=== PATIENT | male | born 1980 | race Caucasian/White ===

== ENCOUNTER 2017-12-30 14:18 | Emergency (ER) | payer OTHER ==
[2017-12-30 14:26] VITALS: BP 128/91
--- NOTE | 2017-12-30 14:27 | ER Report ---
History and Physical Time Seen By MD: 14:27 HPI/ROS CHIEF COMPLAINT: Back pain HISTORY OF PRESENT ILLNESS: This is a 37-year-old male who presents to the emergency department for chronic back pain over the last 2 years. Patient states that he works in the [employer] and has had increased back pain over the last several weeks, today however he states that the back pain seemed to radiate to his left flank. Denies dysuria. No previous urinary concerns. Patient has not taken any medications for the back pain. No fevers or chills. Denies nausea or vomiting. No abdominal pain. No radiation down the buttock or leg. Patient states he did have an MRI a couple of years ago and they didn't find anything. REVIEW OF SYSTEMS: Respiratory: No cough, no dyspnea. Cardiovascular: No chest pain, no palpitations. Gastrointestinal: No vomiting, no abdominal pain. Musculoskeletal: As above. Allergies: Coded Allergies: No Known Drug Allergies (Unverified , 12/30/17) Past Medical/Surgical History The patient has a past medical and surgical history of back pain. Reviewed Nurses Notes: Yes Constitutional Vital Sign - Last 24 Hours 12/30/17 14:26 Pulse 77 Resp 20 B/P (MAP) 128/91 Pulse Ox 96 O2 Delivery Room Air Physical Exam General Appearance: The patient is alert, has no immediate need for airway protection and no current signs of toxicity. Eyes: Pupils equal and round no injection. Respiratory: Chest is non tender, lungs are clear to auscultation. Cardiac: regular rate and rhythm. Gastrointestinal: Abdomen is soft and non tender, no masses, bowel sounds normal. No CVA tenderness. No abdominal pain or rebound tenderness. Musculoskeletal: Neck: Neck is supple and non tender. Lower thoracic and lumbar back negative for contusion, no crepitus, step-offs or obvious deformities. Extremities have full range of motion and are non tender. Skin: No rashes or lesions. DIFFERENTIAL DIAGNOSIS: After history and physical exam differential diagnosis was considered for back pain including but not limited to muscular pain, herniated disc, spine fracture, intra-abdominal causes and urinary tract infection. Medical Decision Making Data Points Laboratory Hematology Test 12/30/17 15:00 Urine Color Yellow Urine Clarity Clear Urine pH 6.0 pH (4.8-9.5) Urine Specific Norris 1.016 Urine Protein Negative mg/dL (NEGATIVE) Urine Glucose (UA) Negative mg/dL (NEGATIVE) Urine Ketones Negative mg/dL (NEGATIVE) Urine Blood Negative (NEGATIVE) Urine Nitrite Negative (NEGATIVE) Urine Bilirubin Negative (NEGATIVE) Urine Urobilinogen Negative mg/dL (0.2-1.9) Urine Leukocyte Esterase Negative (NEGATIVE) Urine RBC None /HPF (0-2/HPF) Urine WBC 1 /HPF (0-5/HPF) Urine Squamous Epithelial Cells None /LPF (</=FEW) Urine Bacteria Negative /HPF (NONE-FEW) Urine Mucus None /HPF (NONE-FEW) Chemistry Test 12/30/17 15:00 Urine Color Yellow Urine Clarity Clear Urine pH 6.0 pH (4.8-9.5) Urine Specific Norris 1.016 Urine Protein Negative mg/dL (NEGATIVE) Urine Glucose (UA) Negative mg/dL (NEGATIVE) Urine Ketones Negative mg/dL (NEGATIVE) Urine Blood Negative (NEGATIVE) Urine Nitrite Negative (NEGATIVE) Urine Bilirubin Negative (NEGATIVE) Urine Urobilinogen Negative mg/dL (0.2-1.9) Urine Leukocyte Esterase Negative (NEGATIVE) Urine RBC None /HPF (0-2/HPF) Urine WBC 1 /HPF (0-5/HPF) Urine Squamous Epithelial Cells None /LPF (</=FEW) Urine Bacteria Negative /HPF (NONE-FEW) Urine Mucus None /HPF (NONE-FEW) Urinalysis Test 12/30/17 15:00 Urine Color Yellow Urine Clarity Clear Urine pH 6.0 pH (4.8-9.5) Urine Specific Norris 1.016 Urine Protein Negative mg/dL (NEGATIVE) Urine Glucose (UA) Negative mg/dL (NEGATIVE) Urine Ketones Negative mg/dL (NEGATIVE) Urine Blood Negative (NEGATIVE) Urine Nitrite Negative (NEGATIVE) Urine Bilirubin Negative (NEGATIVE) Urine Urobilinogen Negative mg/dL (0.2-1.9) Urine Leukocyte Esterase Negative (NEGATIVE) Urine RBC None /HPF (0-2/HPF) Urine WBC 1 /HPF (0-5/HPF) Urine Squamous Epithelial Cells None /LPF (</=FEW) Urine Bacteria Negative /HPF (NONE-FEW) Urine Mucus None /HPF (NONE-FEW) EKG/Imaging Imaging Location: [facility] [place] Patient: Ellis Jara : 1980 Visit/Account:[id number] Date of Sevice: 12/30/2017 Exam type: KUB SINGLE VIEW ABDOMEN History: left flank pain Comparison: None. Findings: There is a nonspecific bowel gas pattern present. There is no gross evidence of organomegaly. A Faint round density projects just inferior to the left SI joint. This may simply represent a superimposed shadow although a distal ureteral calculus is not entirely excluded. Depending upon the clinical presentation CT may be helpful for further evaluation IMPRESSION: 1. Faint round density projects just inferior to the left SI joint which may simply represent a superimposed shadow. A distal left ureteral calculus not excluded given the history of left flank pain. Depending upon the clinical concern a CT may be helpful Report Dictated By: Ruma Ordoñez MD at 12/30/2017 3:15 PM Report E-Signed By: Ruma Ordoñez MD at 12/30/2017 3:18 PM WSN:ORIN ED Course/Re-evaluation ED Course The patient was admitted to room. A history and physical were obtained. Differential diagnoses were considered. A KUB x-ray negative for any acute abnormalities. I do not believe that the patient is suffering from renal colic, I did reexamine the patient, he still does not have CVA tenderness, no rebound tenderness no testicular or groin pain. No pain with deep palpation or sciatica symptoms. The UA was negative. I did tell patient that I do not feel this is a kidney stone I feel that this is an exacerbation of his chronic back pain. He was given 60 mg IM Toradol, 60 mg IM and Norflex in the emergency department. Patient was also given a prescription for physical therapy. He is also given referral list for the local primary care providers he was encouraged to call the local providers to schedule a follow-up appointment. Patient expressed understan ding and was discharged home. Also instructed to try stretching exercises before physical therapy begins and take ibuprofen or Tylenol as needed for his pain.. Decision to Disposition Date: Dec 30, 2017 Decision to Disposition Time: 15:33 Depart Departure Latest Vital Signs Vital Signs Date Time Temp Pulse Resp B/P (MAP) Pulse Ox O2 Delivery O2 Flow Rate FiO2 12/30/17 14:26 77 20 128/91 96 Room Air Impression: Primary Impression: Low back pain Condition: Improved Disposition: HOME OR SELF-CARE Patient Instructions: Acute Low Back Pain (ED), Low Back Strain (GEN) Additional Instructions: I do not believe this is a kidney stone, your urine looks good, I believe this is an exacerbation of your chronic back pain. I do however recommend following up with Physical therapy, you can take the prescription to any therapist in town. Try the stretches provided in the DC paperwork until you follow up with therapy. Drink plenty of water. Get plenty of rest. Return to the ED for any other concerns or worsening symptoms. Problem Qualifiers Primary Impression: Low back pain Chronicity: chronic Back pain laterality: left Sciatica presence: without sciatica Qualified Codes: M54.5 - Low back pain; G89.29 - Other chronic pain JIMENEZ DOMINGUEZ PAROLE DIRECTOR-BC Dec 30, 2017 14:27
[2017-12-30] MEDS ORDERED: KETOROLAC 60 MG/2 ML VIAL IM ONE (14:40)
[2017-12-30] MEDS ORDERED: ORPHENADRINE 60MG/2ML INJ IM ONE (14:40)
--- NOTE | 2017-12-30 15:22 | RADIOLOGY IMAGING REPORT ---
FACILITY: [facility] [place] PATIENT NAME: Ellis Jara : 1980 MR: [id number] V: [id number] EXAM DATE: ORDERING PHYSICIAN: JIMENEZ DOMINGUEZ TECHNOLOGIST: Location: [facility] Patient: Ellis Jara : 1980 Visit/Account:[id number] Date of Sevice: 12/30/2017 Exam type: KUB SINGLE VIEW ABDOMEN History: left flank pain Comparison: None. Findings: There is a nonspecific bowel gas pattern present. There is no gross evidence of organomegaly. A Jp nt round density projects just inferior to the left SI joint. This may simply represent a superimpos ed shadow although a distal ureteral calculus is not entirely excluded. Depending upon the clinical presentation CT may be helpful for further evaluation IMPRESSION: 1. Faint round density projects just inferior to the left SI joint which may simply represent a supe rimposed shadow. A distal left ureteral calculus not excluded given the history of left flank pain. Depending upon the clinical concern a CT may be helpful Report Dictated By: Ruma Ordoñez MD at 12/30/2017 3:15 PM Report E-Signed By: Ruma Ordoñez MD at 12/30/2017 3:18 PM WSN:ORIN
== END 2017-12-30 15:47 | disposition home or self-care (01) ==
LOC: ER 14:44
DX: M54.5 Low back pain (principal)
CPT/HCPCS: 74018; 81001; 96372; 99283; J1885; J2360

== ENCOUNTER → 2018-08-01 | Outpatient (CLI) | payer SELFPAY ==
[~2018-08-01] MED LIST: DICL-190 PO; MELO-207 PO; OMEP-125 PO
[2018-08-01 09:19] LABS: PLATELET COUNT, AUTOMATED 310 K/uL (150-450)
[2018-08-01 09:52] LABS: LDL CHOLESTEROL 114 mg/dl
--- NOTE | 2018-08-01 10:38 | RADIOLOGY IMAGING REPORT ---
FACILITY: [facility] PATIENT NAME: Ellis Jara : 1980 MR: [id number] V: [id number] EXAM DATE: ORDERING PHYSICIAN: LANE KEN TECHNOLOGIST: Location: Patient: Ellis Jara : 1980 Visit/Account:[id number] Date of Sevice: 08/01/2018 Procedures COMPARISONS: None. ADDITIONAL PERTINENT HISTORY: Low back pain with no known injury. FINDINGS: Vertebral body heights and alignments: Negative. Vertebral bodies: Mild anteriorly directed osteophytes at L3-L4. Mild facet hypertrophic changes at L4-L5 and L5-S1. Disc spaces: Negative. Visualized bony pelvis: Negative. Surrounding soft tissues: Negative. IMPRESSION: 1. Mild spondylitic change involving the lumbar spine. 2. No acute appearing bony abnormalities. Report Dictated By: Sudheer Skaggs MD at 08/01/2018 10:32 AM Report E-Signed By: Sudheer Skaggs MD at 08/01/2018 10:34 AM WSN:ORIN
== END ==
LOC: LAB 09:05
PROVIDERS: ATTEND Internal Medicine
DX: Z00.00 Encounter for general adult medical examination without abnormal findings (principal); M54.5 Low back pain
CPT/HCPCS: 36415; 72100; 81001; 82040; 82247; 82310; 82374; 82435; 82465; 82565; 82947; 83718; 84075; 84132; 84155; 84295; 84443; 84450; 84460; 84478; 84520; 85025